=== PATIENT | female | born 1975 | race African-American/Black ===

== ENCOUNTER 2018-03-06 13:19 | Day surgery (SDC) | payer OTHER ==
[~2018-03-06 13:19] MED LIST: CEFAZOLIN 1 GM INJ; CEFAZOLIN 2 GM/50 ML (PMX) 50 ML IVPB; SOD CHLORIDE 0.9% 1,000 ML IV
[2018-03-06] MEDS ORDERED: HYDROmorphONE (0.2 MG/ML) 10ML SYG IV ×3 (16:00)
[2018-03-06] MEDS ORDERED: DIPHENHYDRAMINE 50 MG INJ IV (16:00)
[2018-03-06] MEDS ORDERED: OXYCODONE/ACETAMINOPHEN (5/325) TAB PO ×2 (16:00)
[2018-03-06] MEDS ORDERED: EPHEDrine SULFATE 50 MG/5 ML SYG IV (16:00)
[2018-03-06] MEDS ORDERED: ONDANSETRON 4 MG INJ IV (16:00)
[2018-03-06] MEDS ORDERED: LABETALOL HCL 20MG INJ IV (16:00)
[2018-03-06] MEDS ORDERED: hydrALAzine 20 MG INJ IV (16:00)
[2018-03-06] MEDS ORDERED: MEPERIDINE 25 MG INJ IV (16:00)
[2018-03-06] MEDS ORDERED: ROCURONIUM 50 MG INJ (16:31)
[2018-03-06] MEDS ORDERED: PROPOFOL 20 ML (16:31)
[2018-03-06] MEDS ORDERED: ROPIVACAINE 0.5 % 30 ML VIAL (16:32)
[2018-03-06] MEDS ORDERED: METOCLOPRAMIDE 10 MG INJ (16:32)
[2018-03-06] MEDS ORDERED: ONDANSETRON 4 MG INJ (16:32)
[2018-03-06] MEDS ORDERED: KETOROLAC 30 MG INJ (16:32)
[2018-03-06] MEDS ORDERED: EPHEDrine SULFATE 50 MG/5 ML SYG (16:52)
[2018-03-06] MEDS: BUPIVACAINE 0.25% (MPF) 30 ML INJ (16:55)
[2018-03-06] MEDS ORDERED: NEOSTIGMINE 3 MG/3 ML SYRINGE (17:17)
[2018-03-06] MEDS ORDERED: GLYCOPYRROLATE 0.4 MG INJ (17:17)
[2018-03-06] MEDS ORDERED: POLYMYXIN/BACITRACIN 1L IRRIG (17:35)
[2018-03-06] MEDS: ACETAMINOPHEN 1000MG/100ML IV 100 ML IVPB (17:57)
[2018-03-06] MEDS ORDERED: IBUPROFEN 800 MG TAB PO (18:30)
[2018-03-06] MEDS: IBUPROFEN 600 MG TAB PO (18:39)
== END 2018-03-06 19:03 | disposition home or self-care (01) ==
LOC: SDS 13:19
DX: K43.6 Other and unspecified ventral hernia with obstruction, without gangrene (principal); E78.5 Hyperlipidemia, unspecified
CPT/HCPCS: 49653; 84703

== ENCOUNTER 2018-04-11 16:00 | Day surgery (SDC) | payer OTHER ==
[2018-04-11] MEDS ORDERED: ROCURONIUM 50 MG INJ (20:14)
[2018-04-11] MEDS ORDERED: ONDANSETRON 4 MG INJ (20:14)
[2018-04-11] MEDS ORDERED: NEOSTIGMINE 3 MG/3 ML SYRINGE (20:14)
[2018-04-11] MEDS ORDERED: PROPOFOL 20 ML (20:14)
[2018-04-11] MEDS ORDERED: FENTAnyl 50 MCG/ML VIAL (20:14)
[2018-04-11] MEDS ORDERED: MIDAZOLAM 1 MG/ML 2 ML INJ (20:14)
[2018-04-11] MEDS ORDERED: GLYCOPYRROLATE 0.4 MG INJ (20:14)
[2018-04-11] MEDS ORDERED: CEFAZOLIN 1 GM INJ (20:14)
[2018-04-11] MEDS ORDERED: DEXAMETHASONE 4 MG/ML 1 ML INJ (20:14)
[2018-04-11] MEDS ORDERED: EPHEDrine SULFATE 50 MG/5 ML SYG IV (20:30)
[2018-04-11] MEDS ORDERED: ONDANSETRON 4 MG INJ IV (20:30)
[2018-04-11] MEDS ORDERED: OXYCODONE/ACETAMINOPHEN (5/325) TAB PO ×2 (20:30)
[2018-04-11] MEDS ORDERED: hydrALAzine 20 MG INJ IV (20:30)
[2018-04-11] MEDS ORDERED: HYDROmorphONE 1 MG/5 ML IV SYRINGE IV ×3 (20:30)
[2018-04-11] MEDS ORDERED: DIPHENHYDRAMINE 50 MG INJ IV (20:30)
[2018-04-11] MEDS ORDERED: MEPERIDINE 25 MG INJ IV (20:30)
[2018-04-11] MEDS ORDERED: LABETALOL HCL 20MG INJ IV (20:30)
[2018-04-11] MEDS ORDERED: IPRATROPIUM (NEB) 0.5 MG/2.5 ML AMP HHN (20:30)
[2018-04-11] MEDS ORDERED: TRIMETHOBENZAMIDE 100 MG/ML VIAL IM (20:30)
[2018-04-11] MEDS ORDERED: FENTAnyl 50 MCG/ML VIAL IV ×3 (20:30)
[2018-04-11] MEDS ORDERED: MIDAZOLAM 1 MG/ML 2 ML INJ IV (20:30)
[2018-04-11] MEDS ORDERED: ALBUTEROL 0.083% (NEB) 2.5 MG/3 ML AMP HHN (20:30)
== END 2018-04-11 22:10 | disposition home or self-care (01) ==
LOC: SDS 16:00
DX: J35.1 Hypertrophy of tonsils (principal)
CPT/HCPCS: 42826; 88304